=== PATIENT | female | born 1950 ===

== ENCOUNTER 2024-08-24 06:05 | Day surgery (SDC) | payer MEDICARE ==
[~2024-08-24 06:05] MED LIST: BETADINE 5% OPHTHALMIC 30 ML OP ONE; TRIAMCINOLONE 15 MG/ML INJ INTRAOP ONE; VIGAMOX/BSS 0.15% SYR IO ONE
[2024-08-24] MEDS: TETRACAINE 0.5% STERI-UNIT SOL OP ONE ×2 (06:53→07:34)
[2024-08-24] MEDS: Ak-Dilate OPHTHALMIC*** 1.065 ML, Cyclogyl 1% OPHTH SOL 1.065 ML, GATIFLOXACIN 0.5% OPH... OP ONE (06:54)
[2024-08-24] MEDS: Sodium Chloride 0.9% 10 ML FLUSH Syringe IJ ONE (06:54)
[2024-08-24] MEDS ORDERED: Zofran 4 MG/2 ML VIAL IV PRN (08:15)
[2024-08-24] MEDS ORDERED: DEXMEDETOMIDINE 80 MCG/20ML-NS IV ONE (08:17)
[2024-08-24] MEDS ORDERED: DIPRIVAN 200 MG/20 ML IV ONE ×2 (08:17→08:34)
[2024-08-24 08:43] VITALS: RESP 16; TEMP 98
[2024-08-24 08:54] VITALS: PULSE 67; O2SAT 98
[2024-08-24 08:59] VITALS: BP 149/81
== END 2024-08-24 09:05 | disposition home or self-care (01) ==
LOC: SDC 06:05
PROVIDERS: ATTEND Ophthalmology
DX: H25.811 Combined forms of age-related cataract, right eye (principal); E11.9 Type 2 diabetes mellitus without complications
CPT/HCPCS: 82947; C1780; J2704; A9270-GY